=== PATIENT | female | born 1965 | race American Indian/Alaskan Native ===

== ENCOUNTER 2021-06-28 11:55 | Emergency (ER) | payer SELFPAY ==
[2021-06-28 12:02] VITALS: BP 143/92
[2021-06-28] MEDS ORDERED: KETOROLAC 60 MG/2 ML INJ IM ONE (12:15)
[2021-06-28] MEDS ORDERED: predniSONE 20 MG TAB PO ONE (12:15)
[2021-06-28] MEDS ORDERED: ONDANSETRON 4 MG ODT TAB PO ONE (12:15)
--- NOTE | 2021-06-28 12:17 | Emergency Department Report ---
ED General Adult HPI - General Chief complaint: Pain General Stated complaint: HEADACHE/ LOWER BACK PAIN RT SIDE Time Seen by Provider: 06/28/21 12:10 Source: patient Mode of arrival: Ambulatory Limitations: No Limitations - History of Present Illness Initial comments: 56 yo AA comes to ER with l face pain and headache. Endorses nausea. No fall or trauma. Neuro intact. Nothing taken prior to arrival. Also co low back pain radiating to RLE. No strain per pt. No hx sciatica. Has not seen PCP no home meds LMP years ago p hysterectomy -: Gradual, days(s) Location: head, lower extremity Radiation: extremity Quality: aching Consistency: constant Improves with: none Worsens with: none Associated Symptoms: denies other symptoms. denies: confusion, chest pain, cough, diaphoresis, fever/chills, headaches, loss of appetite, malaise, nausea/vomiting, rash, seizure, shortness of breath, syncope, weakness Treatments Prior to Arrival: none - Related Data Previous Rx's Medication Instructions Recorded Last Taken Type Cyclobenzaprine [Flexeril] 10 mg PO TID PRN #10 tablet 06/28/21 Unknown Rx Ibuprofen [Motrin] 800 mg PO Q8HR PRN #30 tablet 06/28/21 Unknown Rx predniSONE [Deltasone] 20 mg PO DAILY #5 tablet 06/28/21 Unknown Rx Allergies Allergy/AdvReac Type Severity Reaction Status Date / Time No Known Allergies Allergy Unverified 03/10/14 20:28 ED Review of Systems ROS: Stated complaint: HEADACHE/ LOWER BACK PAIN RT SIDE Other details as noted in HPI Comment: All other systems reviewed and negative ED Past Medical Hx - Past Medical History Previous Medical History?: Yes Hx Congestive Heart Failure: No Hx Diabetes: No Hx Asthma: No Hx COPD: No Hx HIV: No Additional medical history: ANEMIA / FIBROIDS - Surgical History Past Surgical History?: Yes Additional Surgical History: Myomectomy - Social History Smoking Status: Never Smoker Substance Use Type: None - Medications Home Medications: Home Medications Medication Instructions Recorded Confirmed Last Taken Type Cyclobenzaprine [Flexeril] 10 mg PO TID PRN #10 tablet 06/28/21 Unknown Rx Ibuprofen [Motrin] 800 mg PO Q8HR PRN #30 tablet 06/28/21 Unknown Rx predniSONE [Deltasone] 20 mg PO DAILY #5 tablet 06/28/21 Unknown Rx ED Physical Exam - General Limitations: No Limitations General appearance: alert, in no apparent distress - Head Head exam: Present: atraumatic, normocephalic - Eye Eye exam: Present: normal appearance - ENT ENT exam: Present: mucous membranes moist - Neck Neck exam: Present: normal inspection - Respiratory Respiratory exam: Present: normal lung sounds bilaterally. Absent: respiratory distress - Cardiovascular Cardiovascular Exam: Present: regular rate, normal rhythm. Absent: systolic murmur, diastolic murmur, rubs, gallop - GI/Abdominal GI/Abdominal exam: Present: soft, normal bowel sounds - Extremities Exam Extremities exam: Present: normal inspection - Back Exam Back exam: Present: normal inspection - Neurological Exam Neurological exam: Present: alert, oriented X3 - Psychiatric Psychiatric exam: Present: normal affect, normal mood - Skin Skin exam: Present: warm, dry, intact, normal color. Absent: rash ED Course Vital Signs 06/28/21 12:02 Temperature 98.2 F Pulse Rate 88 Respiratory 20 Rate Blood Pressure 143/92 O2 Sat by Pulse 97 Oximetry ED Medical Decision Making - Lab Data Result diagrams: 06/28/21 12:29 06/28/21 12:29 - Medical Decision Making Labs 06/28/21 06/28/21 06/28/21 12:29 12:29 13:15 WBC 5.2 RBC 4.12 Hgb 12.6 Hct 37.5 MCV 91 MCH 31 MCHC 34 RDW 14.5 Plt Count 205 Sodium 140 Potassium 4.1 Chloride 104.1 Carbon Dioxide 23 Anion Gap 17 BUN 15 Creatinine 0.6 Estimated GFR > 60 BUN/Creatinine Ratio 25 Glucose 104 H Calcium 9.1 Total Bilirubin 0.20 AST 21 ALT 26 Alkaline Phosphatase 116 Troponin T < 0.010 Total Protein 7.3 Albumin 4.2 Albumin/Globulin Ratio 1.4 Urine Color Yellow Urine Turbidity Clear Urine pH 5.0 Ur Specific [place] 1.024 Urine Protein <15 mg/dl Urine Glucose (UA) Neg Urine Ketones Neg Urine Blood Neg Urine Nitrite Neg Urine Bilirubin Neg Urine Urobilinogen 4.0 Ur Leukocyte Esterase Neg Urine WBC (Auto) 1.0 Urine RBC (Auto) < 1.0 U Epithel Cells (Auto) < 1.0 Urine Mucus Few Vital Signs 06/28/21 12:02 Temperature 98.2 F Pulse Rate 88 Respiratory 20 Rate Blood Pressure 143/92 O2 Sat by Pulse 97 Oximetry pt does not see pcp 56 yo and obese not frequently seen in ER given hx/age- labs ordered co headache- no trauma; neuro intact; no sinus pressure; ENT normal; no lesions no fever or chills no weakness no cp no sob co low back pain rad to RLE- pos straight leg raise; no trauma no dysuria no abd pain no fever or chills medicated in ER with relief labs noted hgb normal ua noted on d/c exam ambulatory, taking po and nad dc home with dc plan of care including diet, activity, meds and follow up in 48 hours to ensure she is feeling better. Pt verbalizes understanding of plan of care - Differential Diagnosis sinusitus; benign headache; sciatica; tia/cva Critical care attestation.: If time is entered above; I have spent that time in minutes in the direct care of this critically ill patient, excluding procedure time. ED Disposition Clinical Impression: Headache, Sciatica Disposition: 01 HOME / SELF CARE / HOMELESS Is pt being admited?: No Does the pt Need Aspirin: No Condition: Stable Instructions: General Headache Without Cause, Radicular Pain Additional Instructions: all labs normal today urine normal today follow up with pcp in 48 hours for recheck referral below diet and activity as tolerated stay well hydrated meds as ordered Prescriptions: predniSONE [Deltasone] 20 mg PO DAILY #5 tablet Cyclobenzaprine [Flexeril] 10 mg PO TID PRN #10 tablet PRN Reason: Muscle Spasm Ibuprofen [Motrin] 800 mg PO Q8HR PRN #30 tablet PRN Reason: Pain, Moderate (4-6) Referrals: MARY MAR MD [Staff Physician] - 3-5 Days Time of Disposition: 14:09
[2021-06-28 13:18] LABS: Hematocrit 37.5 % (30.3-42.9); Hemoglobin 12.6 gm/dl (10.1-14.3); Mean Corpuscular HGB Conc 34 % (30-34); Mean Corpuscular Volume 91 fl (79-97); Platelet Count 205 K/mm3 (140-440); Red Blood Count 4.12 M/mm3 (3.65-5.03); Red Cell Distribution Width 14.5 % (13.2-15.2)
[2021-06-28 13:33] LABS: Bilirubin,Urine NEG (Negative); Blood,Urine NEG (Negative); Color,Urine Yellow (Yellow); Mucus,Urine FEW /HPF; Protein,Urine <15 mg/dL mg/dL (Negative); RBC,Urine < 1.0 /HPF (0.0-6.0)
[2021-06-28 13:40] LABS: Alanine Aminotransferase 26 units/L (7-56); Albumin 4.2 g/dL (3.9-5); Blood Urea Nitrogen 15 mg/dL (7-17); Calcium 9.1 mg/dL (8.4-10.2); Hemolysis Index 14
[2021-06-28 13:56] LABS: BUN/Creatinine Ratio 25
--- NOTE | 2021-06-29 10:35 | Electrocardiograph Report ---
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
== END 2021-06-28 15:48 | disposition home or self-care (01) ==
LOC: ED 11:55
DX: R51.9 Headache, unspecified (principal); M54.41 Lumbago with sciatica, right side; Z98.890 Other specified postprocedural states; Z79.899 Other long term (current) drug therapy
CPT/HCPCS: 36415; 80053; 81001; 84484; 85027; 93005; 96372; 99283; J1885; J7512; Q0162